=== PATIENT | male | born 1965 | race Caucasian/White ===

== ENCOUNTER 2018-07-09 13:47 | Emergency (ER) | payer OTHER, SELFPAY ==
[2018-07-09] MEDS ORDERED: Adacel (T-DAP) 0.5 ML SYRINGE ONE (14:00)
[2018-07-09] MEDS ORDERED: Lidocaine 1% w/Epinephrine 1:100K 20 ML VIAL ONE (14:02)
--- NOTE | 2018-07-09 14:06 | CT ---
Exam: CT brain PROVIDED CLINICAL HISTORY: Head injury COMPARISON: None FINDINGS: The ventricular system is normal in size and morphology. No evidence for intracranial hemorrhage or mass effect. Probable nondisplaced lateral orbital wall fracture with adjacent soft tissue swelling. Paranasal sinus mucosal disease. IMPRESSION: No evidence for intracranial hemorrhage or mass effect.
--- NOTE | 2018-07-09 14:08 | CT ---
EXAM: CT cervical spine PROVIDED CLINICAL HISTORY: Neck pain status post injury COMPARISON: None FINDINGS: No evidence for fracture or traumatic subluxation. No prevertebral soft tissue swelling apparent. Vi sualized lung apices appear clear. IMPRESSION: No evidence for fracture or traumatic subluxation.
--- NOTE | 2018-07-09 14:12 | CT ---
EXAM: CT Facial Bones WO Con PROVIDED CLINICAL HISTORY: Head pain status post injury COMPARISON: None FINDINGS: There is a nondisplaced fracture involving the far lateral aspects of the lateral orbital wall on the left. No additional fracture is evident. The globes and other orbital contents appear normal. Paranasal sinus mucosal disease is noted. Nonspecific heterogeneous attenuation in the region of the vallecula. Correlation with direct visualization recommended. IMPRESSION: Nondisplaced lateral orbital wall fracture on the left.
[2018-07-09 14:17] LABS: #Basophils 0.1 thou/uL (0.0-0.2); #Eosinphils 0.1 thou/uL (0.0-0.7); #Lymphocytes 3.1 thou/uL (1.20-3.40); #Monocytes 0.7 thou/uL (0.11-0.59); #Neutrophils 5.2 thou/uL (1.40-6.50); %Basophils 0.6 % (0.0-1.0); %Eosinophils 1.3 % (0.0-10.0); %Lymphocytes 34.1 % (21.0-51.0); %Monocytes 7.4 % (0.0-10.0); %Neutrophils 56.6 % (42.0-75.0); Hemoglobin 15.4 g/dL (14.0-18.0); Mean Corpuscular HGB CONC 34.4 g/dL (32.0-36.0); Mean Corpuscular Hemoglobin 30.9 pg (27.0-31.0); Mean Corpuscular Volume 89.9 fL (78.0-98.0); Mean Platelet Volume 7.9 fL (7.4-10.4); Platelet Count 304 thou/uL (130-400); Red Blood Cell (RBC) Count 4.97 mill/uL (4.70-6.10); White Blood Cell (WBC) Count 9.1 thou/uL (4.8-10.8)
[2018-07-09 14:31] LABS: ALT (SGPT) 31 U/L (8-55); AST (SGOT) 23 U/L (5-34); Acetaminophen Less than 6.0 mcg/mL (10.0-30.0); Albumin 4.4 g/dL (3.5-5.0); Alcohol 41 mg/dL (Less than 10); Alkaline Phosphatase 140 U/L (40-150); Anion Gap 18 mmol/L (10-20); BUN (Urea Nitrogen) 13 mg/dL (8.9-20.6); Bilirubin, Total 0.3 mg/dL (0.2-1.2); Calc. Creatinine Clearance 0 mL/min (70-130); Calcium 8.9 mg/dL (7.8-10.44); Carbon Dioxide 16 mmol/L (22-29); Chloride 108 mmol/L (98-107); Estimated GFR-MDRD 80; Globulin 2.3 g/dL (2.4-3.5); Glucose 92 mg/dL (70-105); Potassium 4.1 mmol/L (3.5-5.1); Protein, Total 6.7 g/dL (6.0-8.3); Salicylate Less than 8.0 mg/dL (15.0-30.0); Sodium 138 mmol/L (136-145)
[2018-07-09] MEDS ORDERED: Morphine 4 MG/ML VIAL ONE (14:36)
[2018-07-09] MEDS ORDERED: Bacitracin Zinc 1 Packet ONE (15:08)
--- NOTE | 2018-07-09 15:09 | PDOC.EVN ---
Event Note - Event Note Event Note: Trauma Was called by ED for evaluation of a patient in the ED s/p blunt trauma to L temporal region. Patients pain complaint was L head pain and blindness to l eye. Positive LOC and no anticoagulation use. He received a CT of the head, C- spine, face which demonstrated a L lateral orbital wall fx. GCS was 12-13 on arrival and 14 on my evaulation (E4, V4, M5). NSGY was consulted by the ED for neurological evaluation due to L eye blindness. PMH: HTN Meds: Unknown PSH: Unknown Social Hx: etoh use, unknown tobacco and drug use Physical Exam: Vital Signs: Temp 99, HR 98, BP 164/100, RR 19, O2 saturation 99% ORA Primary Survey: A: Airway intact B: Aqual breath sounds bilaterally C: 2+ distal pulses palpable in radials, femorals and DP/PTs bilaterally D: GCS 14 (E4, V4, M6), Gross Motor and sensation intact E: Avulsion laceration to L temporal region, no bruises or external bleeding Secondary Survey: Head: NC, no gross palpable skull deformities/tenderness, Avulsion laceration to L temporal region - bleeding controlled Eyes: Pupils 2 to 1, PERRLA, sclera noninjected, EOEMI ENT: No hemotympanium, no epistaxis, no septal hematoma, midface stable to manipulation, no blood in oralpharynx, dentition intact, no anterior neck injury /crepitus/tenderness C spine: No step offs/deformities, non tender, C collar in place Chest: Non-tender, no crepitus, no abrasions/ecchymosis, equal chest movement Abdomen: Soft, non-distended, non tender Pelvis: Stable to palpation, nontender, no abrasions/ecchymosis Rectal: Deferred Genitourinary: Deferred Extremities: No gross deformities, no abrasions/ecchymosis noted, 2+ radial/ femoral/DP/PT pulses present bilaterally Back/Spine: No step offs/deformities or tenderness to palpation of thoracic/ lumbar spine, no abrasion/ecchymosis noted Neuro: 5/5 strength in bilateral hand bobbin cleaner, plantarflexion and dorsiflexion. Grossly normal sensation x4 extremities. RECS: -Pain control and wound management per ED. -Spoke to NSGY who agrees with CT head read that there is no signs of brain hemorrhage or injury. Patient has a concussion and GCS is improving. No operative indication. No need for further NSGY evaluation or workup at this time. -Trauma surgeon national sales and PA agree that patient needs evaluation by ophthalmology as L eye blindness is not neurological in nature. -Patient also has L lateral orbital wall fx without entrapment. -NSGY and Trauma agree and recommend transfer to trauma center with facial surgery and ophthalmology services. -Please call trauma with any additional questions. -Patient was discussed with MD Zurita before this note. VANITA Swanson-C Trauma Surgery
== END 2018-07-09 16:23 | disposition short-term general hospital (02) ==
LOC: ERS 13:47
DX: S06.0X0A Concussion without loss of consciousness, initial encounter (principal); S01.01XA Laceration without foreign body of scalp, initial encounter; I10 Essential (primary) hypertension; H54.7 Unspecified visual loss; W20.8XXA Other cause of strike by thrown, projected or falling object, initial encounter
CPT/HCPCS: 36415; 70450; 70486; 72125; 80053; 80307; 83605; 85025; 85610; 85730; 90471; 90715; 93005; 96361; 96365; 96375; 99292; G0390; J0690; J2001; J2270